=== PATIENT | female | born 1985 | race Caucasian/White ===

== ENCOUNTER 2019-07-02 19:34 | Emergency (ER) | payer OTHER ==
[2019-07-02 19:39] VITALS: BP 133/90
[2019-07-02] MEDS ORDERED: Ondansetron ODT TAB* 4 MG PO ONE (20:31)
--- NOTE | 2019-07-02 20:31 | ED ---
Medical Screening - HPI Summary HPI Summary: Patient requesting prescription for Zofran. Patient is a resident of [facility] where she is currently detoxing. States she is having episodes of nausea and occasional vomiting, and states that the nurse at [facility] sent her here for prescription rather than administer on-site. Patient states nurse on-site would not administer without a written order from a medical provider. Denies any other symptoms, pain or injury. - History of Current Complaint Chief Complaint: EDNauseaVomitDiarrh Stated Complaint: NAUSEA PER PT Time Seen by Provider: 07/02/19 20:21 Onset/Duration: Started Days Ago Severity: moderate PMH/Surg Hx/FS Hx/Imm Hx Endocrine/Hematology History: Denies: Hx Anticoagulant Therapy Cardiovascular History: Denies: Hx Pacemaker/ICD History: Denies: Hx Dialysis Sensory History: Denies: Hx Eye Prosthesis Opthamlomology History: Denies: Hx Legally Blind EENT History: Denies: Hx Deafness Neurological History: Denies: Hx Dementia Infectious Disease History: No Infectious Disease History: Denies: Traveled Outside the [place] in Last 30 Days - Family History Known Family History: Positive: Non-Contributory - Social History Alcohol Use: In rehab Alcohol Amount: Last drink 3 weeks Substance Use Type: Reports: Marijuana Smoking Status (MU): Light Every Day Tobacco Smoker Review of Systems Constitutional: Negative Eyes: Negative ENT: Negative Cardiovascular: Negative Respiratory: Negative Positive: Vomiting, Nausea Genitourinary: Negative Musculoskeletal: Negative Skin: Negative Neurological: Negative Psychological: Normal All Other Systems Reviewed And Are Negative: Yes Physical Exam - Summary Physical Exam Summary: Abdomen soft nontender. Triage Information Reviewed: Yes Vital Signs On Initial Exam: Initial Vitals Temp Pulse Resp BP Pulse Ox 98.3 F 87 16 133/90 98 07/02/19 19:36 07/02/19 19:36 07/02/19 19:36 07/02/19 19:36 07/02/19 19:36 Vital Signs Reviewed: Yes Appearance: Positive: Well-Appearing Skin: Positive: Warm Head/Face: Positive: Normal Head/Face Inspection Eyes: Positive: Normal Neck: Positive: Supple Respiratory/Lung Sounds: Positive: Clear to Auscultation Cardiovascular: Positive: Normal Abdomen Description: Positive: Nontender Musculoskeletal: Positive: Normal Neurological: Positive: Normal Psychiatric: Positive: Normal AVPU Assessment: Alert - [place] Coma Scale Best Eye Response: 4 - Spontaneous Best Motor Response: 6 - Obeys Commands Best Verbal Response: 5 - Oriented Coma Scale Total: 15 Diagnostics - Vital Signs Vital Signs Temp Pulse Resp BP Pulse Ox 07/02/19 19:36 98.3 F 87 16 133/90 98 - Laboratory Lab Statement: Any lab studies that have been ordered have been reviewed, and results considered in the medical decision making process. Course/Dx - Course Course Of Treatment: Patient requesting prescription for Zofran. Patient is a resident of [facility] where she is currently detoxing. States she is having episodes of nausea and occasional vomiting, and states that the nurse at [facility] sent her here for prescription rather than administer on-site. Patient states nurse on-site would not administer without a written order from a medical provider. Denies any other symptoms, pain or injury. Vital signs within normal limits. Rx Zofran. - Diagnoses Provider Diagnoses: Nausea & vomiting Discharge ED - Sign-Out/Discharge Documenting (check all that apply): Patient Departure Patient Received Moderate/Deep Sedation with Procedure: No - Discharge Plan Condition: Stable Disposition: HOME Patient Education Materials: Acute Nausea and Vomiting (ED) Referrals: Carlton HALL,Aguilar Pfeiffer [Primary Care Provider] - Additional Instructions: Follow-up with primary care. - Billing Disposition and Condition Condition: STABLE Disposition: Home
== END 2019-07-02 21:08 | disposition home or self-care (01) ==
LOC: ED 19:34
DX: R11.2 Nausea with vomiting, unspecified (principal); F17.200 Nicotine dependence, unspecified, uncomplicated
CPT/HCPCS: 99282; A9270-GY